=== PATIENT | female | born 1990 | race Caucasian/White ===

== ENCOUNTER 2016-12-01 20:08 | Emergency (ER) ==
--- NOTE | 2016-12-01 20:24 | ED.PDOC ---
General ED Provider: Dr. ISAI LOPES-ER Chief Complaint: Cough Stated Complaint: im coughing up yellow green sputum--im not sob Time Seen by Physician: 20:22 Mode of Arrival: Walk-In Information Source: Patient Exam Limitations: No limitations Nursing and Triage Documentation Reviewed and Agree: Yes Respiratory Complaint Exam - Respiratory Complaint/Exam Onset/Duration: 3 weeks Symptoms Are: Still present Timing: Constant, Intermittent Initial Severity: Mild Current Severity: Mild Location: Chest Character: Reports: Productive cough Aggravating: Reports: URI, Passive smoke exposure Alleviating: Reports: None Associated Signs and Symptoms: Reports: URI, Nasal congestion, Sore throat. Denies: Rapid breathing, Dyspnea, Fever, Chills, Chest pain, Pleuritic chest pain, Wheezing, Hemoptysis, Dizziness, Calf pain, Calf swelling, Edema, Hoarseness, Sinus discomfort, Vomiting, Weight loss, Decreased oral intake, Increased thirst, Increased appetite, Increased urination History of Healthcare-Acquired Pneumonia: No Related Surgical History: Reports: None Pulmonary Embolism Risk Factors: Smoking Cardiac Risk Factors: Reports: Smoking Pseudomonas Risk Factors: Reports: None Tuberculosis Risk Factors: Reports: Smoking Status Asthmaticus Risk Factors: Reports: None Home Oxygen Use: No Recent Stress Test: No Recent Echo/LV Function: No Current Antibiotic Use: No Current Asthma Medication Use: No Respiratory Distress: None Inadequate Respiratory Effort: No Dysphagia Present: No Stridor Present: No JVD Present: No Accessory Muscle Use: No Retractions: Not Present Diminished Breath Sounds: No Sinus Tenderness: None Grunting Respirations: Yes Kussmaul Respirations: Yes Differential Diagnoses: Pneumonia, Bronchitis Review of Systems - Review Of Systems Constitutional: Reports: No symptoms Eyes: Reports: No symptoms Ears, Nose, Mouth, Throat: Reports: No symptoms Respiratory: Reports: Cough, Wheezing Cardiac: Reports: No symptoms GI: Reports: No symptoms : Reports: No symptoms Musculoskeletal: Reports: No symptoms Skin: Reports: No symptoms Neurological: Reports: No symptoms Endocrine: Reports: No symptoms Hematologic/Lymphatic: Reports: No symptoms All Other Systems: Reviewed and Negative Past Medical History - Past Medical History Endocrine: Reports: Unknown Cardiovascular: Reports: Unknown Respiratory: Reports: Unknown Hematological: Reports: Unknown Gastrointestinal: Reports: Unknown Genitourinary: Reports: Unknown Neuro/Psych: Reports: Unknown Musculoskeletal: Reports: Unknown Cancer: Reports: Unknown Last Menstrual Period: 08/11 on depo - Surgical History General Surgical History: Reports: Unknown - Family History Family History: Reports: Unknown - Social History Smoking Status: Current every day smoker, Light tobacco smoker Hx Substance Use: No Alcohol Screening: Occasionally Lives: With family - Immunizations Tetanus Shot up to Date: Yes Physical Exam - Physical Exam Appearance: Well-appearing, No pain distress, Well-nourished Eyes: SUSAN, EOMI, Conjunctiva clear ENT: Ears normal, Oropharynx normal, Rhinorrhea Neck: Supple Respiratory: Rhonchi Cardiovascular: RRR, Pulses normal, No rub, No murmur GI/: Soft, Nontender, No masses, Bowel sounds normal, No Organomegaly Musculoskeletal: Normal strength, ROM intact, No edema, No calf tenderness Skin: Warm, Dry, Normal color Neurological: Sensation intact, Motor intact, Reflexes intact, Cranial nerves intact, Alert, Oriented Psychiatric: Affect appropriate Critical Care Note - Critical Care Note Total Time (mins): 0 Course - Course Vital Signs: Temp Pulse Resp BP Pulse Ox 12/01/16 20:10 98.6 F 91 H 20 127/94 H 98 Departure - Departure Time of Disposition: 20:24 Disposition: HOME SELF-CARE Discharge Problem: Bronchitis Instructions: Acute Bronchitis (ED) Condition: Good Pt referred to PMD for follow-up: Yes Additional Instructions: biaxin 500mg bid x 10 days--medrol dose pack--tessalon perles 200mg tid prn cough 30----stop smoking--recheck in 72hrs if not improving.. Allergies/Adverse Reactions: Allergies Penicillins Adverse Reaction (Verified 12/01/16 20:17) Hives Home Medications: Ambulatory Orders Dextroamphetamine/Amphetamine [Adderall 10 mg Tablet] 10 mg PO DAILY 12/01/16 Medroxyprogesterone Acetate [Depo-Provera] 150 mg IM DIRECTED 12/01/16 Multivitamin 1 cap PO DAILY 12/01/16 Disposition Discussed With: Patient
[2016-12-01 20:25] VITALS: BP 127/94; TEMP 98.6; BMI 18.1
== END 2016-12-01 21:22 | disposition home or self-care (01) ==
LOC: ED 20:08
DX: J20.9 Acute bronchitis, unspecified (principal); F17.210 Nicotine dependence, cigarettes, uncomplicated
CPT/HCPCS: 99282

== ENCOUNTER 2018-02-05 11:33 | Emergency (ER) | payer OTHER ==
[2018-02-05 11:56] VITALS: BP 122/79; TEMP 98.4; BMI 18.6
--- NOTE | 2018-02-05 13:54 | ED.PDOC ---
General ED Provider: Dr. ISAI REDDY Chief Complaint: Non-specific Complaint Stated Complaint: Mouth, dental and facial pain. Hx of dental disease with previous multiple extractions and diffuse peridontal disease. Feel inside mouth is sore and lt face is swollen Time Seen by Physician: 13:15 Mode of Arrival: Walk-In Information Source: Patient Exam Limitations: No limitations Primary Care Provider: CHRIS SAMAYOA Nursing and Triage Documentation Reviewed and Agree: Yes Reviewed sepsis parameters & appropriate labs ordered?: Yes System Inflammatory Response Syndrome: Not Applicable Sepsis Protocol: For patient's 13 years and over: Temp is 96.8 and below OR 101 and greater Pulse >90 BPM Resp >20/minute Acutely Altered Mental Status Are patient's symptoms suggestive of a new infection, such as: -Pneumonia -Skin, Soft Tissue -Endocarditis -UTI -Bone, Joint Infection -Implantable Device -Acute Abdominal Infection -Wound Infection -Meningitis -Blood Stream Catheter Infection -Unknown System Inflammatory Response Syndrome: Not Applicable EENT Complaint Exam - Dental/Oral Complaint/Exam Mechanism of Injury: No known trauma Symptoms Are: Still present Timing: Constant Initial Severity: Moderate Current Severity: Moderate Character: Reports: Sharp, Aching, Throbbing Aggravating: Reports: Heat, Cold, Chewing Alleviating: Reports: None Associated Signs and Symptoms: Reports: Swelling, Foul taste in mouth Related History: Reports: Similar episode Cardiac Risk Factors: Reports: None Dental/Oral Surgical History: Reports: None Tooth Findings: Present: Percussion tenderness, Gross decay, Gross caries, Abcess, Cellulitis Cervical Lymphadenopathy Present: No Facial Swelling Present: Yes (left) Bleeding Present: No Oropharynx Findings: Absent: Clots, Active bleeding Septal Hematoma: No Foreign Body Present: No Dysphagia Present: No Drooling Present: Yes Asymmetrical Tonsillar Swelling Present: No Uvula Midline: Yes Sona-tonsillar Fluctuence: No Trismus Present: No Palatal Petechiae Present: No Scarlatinaform Rash Present: No Lesions: Present: Gums Differential Diagnoses: Odontogenic Pain, Periodontic Disease Review of Systems - Review Of Systems Constitutional: Reports: No symptoms Eyes: Reports: No symptoms Ears, Nose, Mouth, Throat: Reports: No symptoms, Mouth pain, Mouth swelling Respiratory: Reports: No symptoms Cardiac: Reports: No symptoms GI: Reports: No symptoms : Reports: No symptoms Musculoskeletal: Reports: No symptoms Skin: Reports: No symptoms Neurological: Reports: No symptoms Endocrine: Reports: No symptoms Hematologic/Lymphatic: Reports: No symptoms All Other Systems: Other (Hx Small 1.3 cm oviod lesion inner table frontoparietal region; AV malformation Rt Leg; Prev multiple issues with dental health) Past Medical History - Past Medical History Endocrine: Reports: Unknown Cardiovascular: Reports: Unknown Respiratory: Reports: Unknown Hematological: Reports: Unknown Gastrointestinal: Reports: Unknown Genitourinary: Reports: Unknown Neuro/Psych: Reports: Unknown Musculoskeletal: Reports: Unknown Cancer: Reports: Unknown Last Menstrual Period: MISCARRAIGE LAST MONTH, NO PERIOD SINCE THAT TIME - Surgical History General Surgical History: Reports: Unknown - Family History Family History: Reports: Unknown - Social History Smoking Status: Current every day smoker, Light tobacco smoker Hx Substance Use: No Alcohol Screening: Occasionally Physical Exam - Physical Exam Appearance: Well-appearing, Well-nourished, Thin Ill-appearing: Mild Pain Distress: Moderate Eyes: SUSAN, EOMI, Conjunctiva clear ENT: Ears normal, Nose normal, Oropharynx normal, Erythema (oral region. swelling and tenderness of lt facial region extending to TMJ region ) Respiratory: Airway patent, Breath sounds clear, Breath sounds equal, Respirations nonlabored Cardiovascular: RRR, Pulses normal, No rub, No murmur GI/: Soft, Nontender, No masses, Bowel sounds normal, No Organomegaly Musculoskeletal: Normal strength, ROM intact, No edema, No calf tenderness Skin: Warm, Dry, Normal color Neurological: Sensation intact, Motor intact, Reflexes intact, Cranial nerves intact, Alert, Oriented Psychiatric: Affect appropriate, Mood appropriate Interpretation - Radiology Interpretation Radiology Interpretation By: Radiologist Radiology Results: No acute changes Exam Interpreted: CT Scan Re-Evaluation - Re-Evaluation Time of Re-Evaluation: 16:00 Status: Improved Vital Signs Stable: Yes Pain Level: pain has significantly reduced Appearance: NAD Lungs: Clear Skin: Warm and Dry Neuro: Alert and Oriented X3 CV: RRR Critical Care Note - Critical Care Note Total Time (mins): 0 Course - Course Hematology/Chemistry: 02/05/18 14:10 02/05/18 14:10 Vital Signs: Temp Pulse Resp BP Pulse Ox 02/05/18 11:34 98.4 F 85 20 122/79 97 Departure - Departure Time of Disposition: 16:40 Disposition: LEFT W/OUT BEING SEEN Discharge Problem: Dental caries, Dentalgia Instructions: Gingivostomatitis (ED) Condition: Good Pt referred to PMD for follow-up: Yes (See local dentist for definitive care) IPMP verified?: No Prescriptions: Clindamycin HCl [Cleocin] 150 mg PO Q6HR #30 Clindamycin HCl [Cleocin] 300 mg PO Q6HR #20 cap Allergies/Adverse Reactions: Allergies clarithromycin [From Biaxin] Adverse Reaction (Verified 02/05/18 11:42) Hives Penicillins Adverse Reaction (Verified 02/05/18 11:40) Hives Home Medications: Ambulatory Orders Multivitamin 1 cap PO DAILY 12/01/16 Clindamycin HCl [Cleocin] 150 mg PO Q6HR #30 02/05/18 Clindamycin HCl [Cleocin] 300 mg PO Q6HR #20 cap 02/05/18 Disposition Discussed With: Patient
[2018-02-05] MEDS ORDERED: CLEOCIN 300 MG in SODIUM CHLORIDE 100 ML IV ONE (14:31)
[2018-02-05] MEDS ORDERED: CLEOCIN 600 MG in SODIUM CHLORIDE 50 ML IV STA (14:38)
[2018-02-05] MEDS ORDERED: CLEOCIN 300 MG in SODIUM CHLORIDE 50 ML IV ONE (15:00)
--- NOTE | 2018-02-05 15:30 | CT ---
EXAM: CT maxillofacial with and without contrast. HISTORY: Left facial swelling and pain. COMPARISON: None available. TECHNIQUE: Multiple axial images of the face were obtained prior to and following intravenous admini stration of 75 mL of Omnipaque-300, low osmolar. Images were reformatted in the sagittal and coronal planes. FINDINGS: The soft tissues of the face are unremarkable. No lymphadenopathy or drainable fluid nahomi ection identified. Pharyngeal soft tissues are normal. Vascular structures in the neck are patent. No facial fracture identified. Small polyps or retention cysts noted in the right greater than left maxillary sinus. Paranasal sinuses otherwise clear. Mastoid air cells are clear. No acute dental a bnormality is seen. Intracranial structures are unremarkable. IMPRESSION: No acute abnormality of the face.
[2018-02-05] MEDS ORDERED: TORADOL PO STA (15:48)
== END 2018-02-05 17:07 | disposition home or self-care (01) ==
LOC: ED 11:33
DX: K02.7 Dental root caries (principal); K08.89 Other specified disorders of teeth and supporting structures; F17.210 Nicotine dependence, cigarettes, uncomplicated
CPT/HCPCS: 36415; 80053; 85007; 85025; 96365; 99283